=== PATIENT | female | born 1970 | race Caucasian/White ===

== ENCOUNTER 2020-09-17 13:33 | Emergency (ER) | payer OTHER | END 2020-09-17 14:59 | disposition home or self-care (01) | LOC: FER 13:33 | DX: S70.12XA Contusion of left thigh, initial encounter (principal); S90.32XA Contusion of left foot, initial encounter; V49.50XA Passenger injured in collision with unspecified motor vehicles in traffic accident, initial encounter; Y92.410 Unspecified street and highway as the place of occurrence of the external cause | CPT/HCPCS: 73552; 73630 ==